=== PATIENT | male | born 1985 | race Caucasian/White ===

== ENCOUNTER 2024-04-10 15:16 | Emergency (ER) | payer OTHER, SELFPAY ==
[2024-04-10] VITALS (12 sets, daily range): BP systolic 133–164; BP diastolic 74–87; PULSE 91–101; TEMP 36.8; O2SAT 95–99; BMI 24.7
--- NOTE | 2024-04-10 15:30 | ECG_ITS ---
[facility] Test Date: 2024-04-10 Pat Name: ELBA DONG Department: Room: - Gender: Male [employer] With [employer]: : 1985 Requested By: Order Number: [id number] Reading MD: BRANDON RODRIGUEZ Measurements Intervals [place] Rate: 90 P: 73 RI: 140 QRS: 80 QRSD: 94 T: 72 QT: 350 QTc: 398 Interpretive Statements 1100 Sinus rhythm Non-Specific T wave inversion in aVL 2420 RSR (QR) in lead V1/V2, consistent with right ventricular conduction delay 9130 borderline ECG No previous ECG available for comparison Electronically Signed On 04-11-2024 6:10:16 EST by BRANDON RODRIGUEZ
--- NOTE | 2024-04-10 15:30 | XR_ITS ---
[facility] [place] [id number] Patient Name: ELBA DONG MRN: [id number] date: 1985 Sex: M Assigned Patient Location: ER Current Patient Location: ED.MAIN Accession/Order Number: [id number] Exam Date: 04/10/2024 16:21 Report Date: 04/10/2024 16:23 At the request of: TERESA PALENCIA Procedure: XR chest 1V Single view chest: CLINICAL HISTORY: chest pain, SOB COMPARISON: None FINDINGS: The heart is normal size. Left upper lobe airspace disease. Right lung appears clear. No pneumothorax, large pleural effusion or free air. XR/XR chest 1V IMPRESSION: LEFT UPPER LOBE AIRSPACE DISEASE. REPEAT CHEST X-RAY AFTER THERAPY IS RECOMMENDED UNDERLYING MALIGNANCY CANNOT BE EXCLUDED. Impression dictated by: Raffi Rod Jr., D.O.04/10/2024 4:23 PM Dictation Location: [place] [address] Electronically authenticated by: [id number] Y Date: 04/10/2024 16:23
--- NOTE | 2024-04-10 15:55 | ED.CHESTPAI1 ---
HPI - Chest Pain General Chief Complaint: Chest Pain Stated Complaint: chest pains,SOB Time Seen by Provider: 04/10/24 15:20 Source: patient Mode of arrival: walk-in History of Present Illness HPI narrative: cc = chest pain and cough, shortness of breath Yesterday the patient developed let sided chest pain and had some shortness of breath along with increased cough. 10 days ago, his child was ill and tested positive for covid and influenza. The patient because sick about 3 days later, but never got tested. He improved after 5 days of symptoms before the chest pain developed. He is a daily smoker of cigarettes. Related Data Previous Rx's ?Medication ?Instructions ?Recorded albuterol sulfate 90 mcg/actuation 2 inh inhalation Q6H PRN shortness 04/10/24 aerosol inhaler of breath or wheezing #8.5 grams levofloxacin 750 mg tablet 750 mg PO DAILY 7 days #7 tabs 04/10/24 Allergies Allergy/AdvReac Type Severity Reaction Status Date / Time No Known Drug Allergies Allergy Verified 04/10/24 15:25 PFSH PFSH Social History Little interest or pleasure in doing things: not at all Feeling down, depressed, or hopeless: not at all Exam Narrative Exam Narrative: Nurses notes and vital signs reviewed and patient is not hypoxic. afebrile General: Well-appearing and in no apparent distress. Skin: Warm, dry, no pallor noted. No rash. Head: Normocephalic, atraumatic. Eye: Pupils are equal, round and EOMI. No scleral icterus. Ears, Nose, Mouth, and Throat: Oral mucosa is moist Cardiovascular: Regular Rate and Rhythm without murmur, gallop or rub. Respiratory: No accessory muscle use or respiratory distress. Lungs are clear to auscultation, no wheezing, rales or rhonchi Chest Wall: left mid chest wall tenderness without crepitus or subcutaneous emphysema Musculoskeletal: normal ROM GI: Abdomen is soft, non-distended. Normal bowel sounds. No tenderness to palpation. No rebound, guarding, or rigidity noted. Neurological: A&O x4. No cranial nerve dysfunction observed. No truncal ataxia. Moves all extremities. Sensation intact. Psychiatric: Cooperative and interactive. Normal mood and affect. Constitutional Vital Signs, click to edit/add: Last Vital Signs Temp 98.2 F 04/10/24 15:20 Pulse 98 H 04/10/24 15:20 Resp 20 04/10/24 15:20 BP 164/74 H 04/10/24 15:20 Pulse Ox 99 04/10/24 15:20 Course Vital Signs Vital signs: Vital Signs Temperature 98.2 F 04/10/24 15:20 Pulse Rate 98 H 04/10/24 15:20 Respiratory Rate 20 04/10/24 15:20 Blood Pressure 164/74 H 04/10/24 15:20 Pulse Oximetry 99 04/10/24 15:20 Temperature 98.2 F 04/10/24 15:20 Pulse Rate 98 H 04/10/24 15:20 Respiratory Rate 20 04/10/24 15:20 Blood Pressure 164/74 H 04/10/24 15:20 Pulse Oximetry 99 04/10/24 15:20 MDM - Chest Pain MDM Narrative Medical decision making narrative: Patient was placed on monitoring manager and EKG obtained. Blood drawn and sent for evaluation. Chest x-ray obtained White blood cell count elevated at 18,000. Left shift noted. BMP is unremarkable troponin and BNP are negative. Chest x-ray reveals a wedge-shaped left upper lobe consolidation consistent with pneumonia although underlying neoplasm cannot be excluded. Patient was discharged home with a prescription for albuterol metered-dose inhaler and for levofloxacin antibiotic to take clear of his community-acquired pneumonia. He will need to be reassessed following antibiotic completion and get a repeat chest x-ray to ensure that the airspace consolidation is cleared posttreatment. He was informed of all of this and discharged home Lab Data Attestation: I reviewed the patient's lab results. Labs: Lab Results 04/10/24 Range/Units 15:49 WBC 18.0 H (4.0-11.0) 10^3/uL RBC 4.15 L (4.70-6.10) 10^6/uL Hgb 12.9 L (14.0-18.0) g/dL Hct 38.0 L (42.0-54.0) % MCV 91.6 (80.0-94.0) fL MCH 31.1 (25.9-34.0) pg MCHC 33.9 (29.9-35.2) g/dL RDW 11.9 (11.0-15.0) % Plt Count 365 (150-450) 10^3/uL MPV 9.5 (9.5-13.5) fL Neut % (Auto) 76.4 H (43.0-75.0) % Lymph % (Auto) 12.0 L (20.5-60.0) % [place] % (Auto) 10.7 (1.7-12.0) % Eos % (Auto) 0.3 L (0.9-7.0) % Baso % (Auto) 0.2 (0.2-2.0) % Neut # (Auto) 13.7 H (1.4-6.5) 10^3/uL Lymph # (Auto) 2.2 (1.2-3.8) 10^3/uL [place] # (Auto) 1.9 H (0.3-0.8) 10^3/uL Eos # (Auto) 0.1 (0.0-0.7) 10^3/uL Baso # (Auto) 0.0 (0.0-0.1) 10^3/uL Abs Immat Gran (auto) 0.07 H (0.00-0.03) 10^3/uL Imm/Tot Granulo (auto) 0.4 (0.0-0.5) % D-Dimer 0.39 (<=0.59) mg/L FEU Sodium 138 (136-145) mmol/L Potassium 4.0 (3.5-5.1) mmol/L Chloride 102 (98-107) mmol/L Carbon Dioxide 26.2 (21.0-32.0) mmol/L Anion Gap 13.8 BUN 11.0 (7.0-18.0) mg/dL Creatinine 0.88 (0.70-1.30) mg/dL Est GFR ( Amer) >60 (>=60 mL/min/1.73m^2) Est GFR (Non-Af Amer) >60 (>=60 mL/min/1.73m^2) BUN/Creatinine Ratio 12.5 Glucose 124 H (74-106) mg/dL Calcium 9.0 (8.5-10.1) mg/dL Troponin I High Sens 6.4 (4.0-76.1) pg/mL NT-Pro-B Natriuret Pep 78.0 (<=450.0) pg/mL Imaging Data Chest x-ray: Radiologist's impression: ITS Impressions Chest X-Ray 04/10/24 15:30 IMPRESSION: LEFT UPPER LOBE AIRSPACE DISEASE. REPEAT CHEST X-RAY AFTER THERAPY IS RECOMMENDED UNDERLYING MALIGNANCY CANNOT BE EXCLUDED. Impression dictated by: Raffi Rod Jr., D.O.04/10/2024 4:23 PM Dictation Location: [place] [address] Electronically authenticated by: [id number] Y Date: 04/10/2024 16:23 ECG Data Attestation: I personally reviewed and interpreted this ECG as follows: Interpretation: EKG interpretation: Emergency Department physician interpretation. Normal sinus rhythm at 90bpm. Normal axis, right ventricular conduction delay, no ST segment elevation or depression. Smoking Cessation Time spent discussing smoking cessation with patient: 3 to 10 minutes Patient Acknowledges Need for Cessation: Yes Heart Score History: Slightly/Non-Suspicious ECG: Normal Age: <45 years Risk Factors: No Risk Factors Troponin: <Normal Limit Total Heart Score Recommendations & Risks:: 0 Discharge Plan Discharge Chief Complaint: Chest Pain Clinical Impression: Community acquired pneumonia, Chest pain Patient Disposition: Home, Self-Care Time of Disposition Decision: 16:48 Prescriptions / Home Meds: New levofloxacin 750 mg tablet 750 mg PO DAILY 7 Days Qty: 7 0RF albuterol sulfate 90 mcg/actuation HFA aerosol inhaler 2 inh inhalation Q6H PRN (Reason: shortness of breath or wheezing) Qty: 8.5 0RF Print Language: Wolof Instructions: Chest Pain (ED), Community Acquired Pneumonia (ED) Referrals: Physician,Non-Staff, MD [Primary Care Provider] - 1 week
[2024-04-10 15:58] LABS: Basophils Percent Auto 0.2 % (0.2-2.0); Eosinophils Absolute Auto 0.1 10^3/uL (0.0-0.7); Eosinophils Percent Auto 0.3 % (0.9-7.0); Hemoglobin 12.9 g/dL (14.0-18.0); Immature Granulocytes Abs Auto 0.07 10^3/uL (0.00-0.03); Immature Granulocytes Pct Auto 0.4 % (0.0-0.5); Lymphocytes Absolute Auto 2.2 10^3/uL (1.2-3.8); Mean Corpuscular HGB Conc 33.9 g/dL (29.9-35.2); Mean Corpuscular Hemoglobin 31.1 pg (25.9-34.0); Mean Corpuscular Volume 91.6 fL (80.0-94.0); Mean Platelet Volume 9.5 fL (9.5-13.5); Monocytes Absolute Auto 1.9 10^3/uL (0.3-0.8); Monocytes Percent Auto 10.7 % (1.7-12.0); Neutrophils Absolute Auto 13.7 10^3/uL (1.4-6.5); Neutrophils Percent Auto 76.4 % (43.0-75.0); Platelet Count 365 10^3/uL (150-450); Red Blood Count 4.15 10^6/uL (4.70-6.10); Red Cell Distribution Width 11.9 % (11.0-15.0)
[2024-04-10 16:10] LABS: D Dimer 0.39 mg/L FEU (<=0.59)
[2024-04-10 16:21] LABS: Anion Gap 13.8; BUN Creatinine Ratio 12.5; Carbon Dioxide 26.2 mmol/L (21.0-32.0); Chloride 102 mmol/L (98-107); Estimated GFR (African America >60 (>=60 mL/min/1.73m^2); Estimated GFR (Non-African Ame >60 (>=60 mL/min/1.73m^2); Glucose 124 mg/dL (74-106); Sodium 138 mmol/L (136-145); Troponin I High Sensitivity 6.4 pg/mL (4.0-76.1)
== END 2024-04-10 17:22 | disposition home or self-care (01) ==
PROVIDERS: Emergency Provider Emergency Medicine
DX: J18.9 Pneumonia, unspecified organism (principal); R07.9 Chest pain, unspecified; F17.210 Nicotine dependence, cigarettes, uncomplicated
CPT/HCPCS: 36415; 71045; 80048; 83880; 84484; 85025; 85378; 93005; 99285